=== PATIENT | female | born 1940 | race Hispanic/Latino ===

== ENCOUNTER 2016-09-11 09:00 | Outpatient (CLI) | payer MEDICARE, OTHER ==
[2016-09-11] MEDS ORDERED: NACL ONE (10:04)
[2016-09-11 10:06] LABS: Blood Urea Nitrogen 13 mg/dL (7-17)
--- NOTE | 2016-09-11 15:38 | Cat Scan Report ---
CTA abdomen, pelvis, and lower extremities: Transverse images are obtained from lower chest to the feet with coronal and sagittal 2-D reformatted images as well as 3-D MIP reformatted image. The visualized lung bases are clear. Multiple low attenuation and sharply defined masses are identified in the left and right lobes of the liver the largest being in the right lobe measuring 2.6 cm. There is extensive calcification throughout the atrophic pancreas with a 17 mm pancreatic head mass have a relatively low attenuation. There is no biliary dilatation. There is parenchymal scarring in the inferior right kidney and a 12 mm cyst in the anterior left kidney. There is no 8mm exophytic upper pole cyst. The unopacified bowel and mesentery appear generally unremarkable. The appendix is visualized. There is a 19 mm cyst occupying most of the left ovary. No free fluid. There is significant degenerative spondylosis at L4-5 and L5-S1 with virtual collapse of both discs. The descending thoracic and upper abdominal aorta demonstrates a diameter of 3 cm. The SMA, ANA, celiac, and single renal arteries bilaterally are patent. Beginning at the level of the renal arteries there is aneurysmal dilatation of the abdominal aorta having a large circumferential mural thrombus. The maximum diameter is 4.3 cm with the opacified lumen measuring approximately 2.5 cm. The approximate length of 7.7. The thrombus terminates just proximal to the aortic bifurcation which has a diameter of approximately 2.3 cm. The common iliac arteries as well as their bifurcations are patent. There is patency of the superficial femoral arteries with patent bifurcations. There is continued patency of both SFA, popliteal, common and peroneal arteries to their bifurcations. There is continuously patent three-vessel both distal extremities. Impression: 1. Aneurysmal ectasia of the lower thoracic and suprarenal aorta. 2. 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 3. Patent bilateral lower extremity runoff vessels. 4. 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 Benign renal, and hepatic pathology. Degenerative lower lumbar spine changes as detailed above. Recommendation: I cannot currently recall the patient is 2008 CT of the abdomen for comparison of the pancreatic findings. Comparison of the images or at least a report however may be helpful in further decisions regarding possible workup.
== END 2016-09-11 09:01 | disposition home or self-care (01) ==
LOC: CT 09:00
PROVIDERS: ATTEND Surgery Vascular Surgery
DX: I71.4 Abdominal aortic aneurysm, without rupture (principal); N28.1 Cyst of kidney, acquired; K86.1 Other chronic pancreatitis; K86.89 Other specified diseases of pancreas; I77.810 Thoracic aortic ectasia; M47.897 Other spondylosis, lumbosacral region; M47.896 Other spondylosis, lumbar region
CPT/HCPCS: 36415; 75635; 82565; 84520; Q9967